=== PATIENT | female | born 1960 | race Caucasian/White ===

== ENCOUNTER 2018-02-16 12:05 | Inpatient (IN) ==
--- NOTE | 2018-02-16 12:36 | Anesthesia Evaluation PreOp ---
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: Other (chronic back pain, sciatica) Other Medical History: Other (obesity BMI=46.7) Anesthesia History: No Prior Anesthetic Complications, Past Anesthesia Alcohol Use: rarely Drug use: none Medications and Allergies ALPRAZolam [Xanax 1 MG Tablet] 1 mg PO QID 02/16/18 [History] Aspirin [Ecotrin] 325 mg PO DAILY 02/16/18 [History] Carbidopa/Levodopa ER 50/200 [Sinemet ER 50-200 TAB] 1 each PO TID 02/16/18 [ History] HYDROmorphone [Dilaudid] 8 mg PO TID 02/16/18 [History] Loratadine [Claritin] 10 mg PO DAILY 02/16/18 [History] Metoprolol [Lopressor] 50 mg PO BID 02/16/18 [History] Oxybutynin Chloride [Ditropan Xl] 5 mg PO BID 02/16/18 [History] Oxycodone HCl [Oxycodone HCl ER] 60 mg PO TID 02/16/18 [History] 3 Allergy/AdvReac Type Severity Reaction Status Date / Time gabapentin [From Neurontin] Allergy legs swell Verified 02/08/18 10:29 pregabalin [From Lyrica] Allergy legs swell Verified 02/08/18 10:29 - Meds/Allergy Pre-op Review Medications Reviewed: Yes Allergies Reviewed: Yes Beta Blockers on Current Med List: Yes If Beta Blockers taken, Date/Time (Last Dose taken): 02/16/2018 at 1100 Anesthesia Results - Labs Laboratory Tests 02/08/18 02/08/18 02/08/18 10:30 10:30 10:30 WBC 8.7 Hgb 13.7 Hct 43.2 Plt Count 232 PT 10.9 INR 1.0 APTT 29.7 Sodium 136 Potassium 4.1 BUN 15 Creatinine 0.82 - Imaging EKG: report reviewed (04/29/2016 SINUS BRADYCARDIA) Anesthesia Exam O2 Sat Height 1.56 m Height 1.56 m Weight 113.852 kg Weight 113.852 kg O2 Sat by Pulse Oximetry 95 Vital Signs Temp Pulse Resp BP Pulse Ox 99.3 F 59 18 144/96 95 02/16/18 12:37 02/16/18 12:37 02/16/18 12:37 02/16/18 12:37 02/16/18 12:37 Height: 5'1.5" Weight: 251 lbs NPO (# of Hours): 8 - HEENT Pupil (Motor): EOMI Mallampati: III Teeth: Normal Oral Opening: Greater than 3 - VOUCHER EXAMINER LOC: Oriented VOUCHER EXAMINER Motor: Normal RUE, Normal LLE, Normal Face, Deficit LUE, Deficit RLE ( slight weakness in back of thigh) VOUCHER EXAMINER Sensory: Normal: RUE, LUE, RLE, LLE, Face - Cardiac Rhythm: Regular Murmur: None - Pulmonary Breath Sounds: bilateral Clear Respiratory Effort: Symmetrical Anesthesia Assess/Plan ASA Score: 3 Modified [place] Scale for Level of Consciousness: Cooperative, oriented, and tranquil Anesthetic Plan: General, Regional (femoral nerve block, Ipack) Monitoring Plan: Standard Monitors Recovery Plan: PACU
[2018-02-16] MEDS ORDERED: CeFAZolin Syr 2,000MG/20 ML 2,000 MG/20 ML SYRINGE IVPB ONE (12:46)
[2018-02-16] MEDS ORDERED: Albuterol 2.5 MG/3 ML NEBULIZER IH ONE (12:46)
--- NOTE | 2018-02-16 12:52 | History & Physical Report ---
Date of Encounter: 02/16/18 Time of Encounter: 12:52 24 Hour HP Update - Instructions Instructions: If the History and Physical is less than 30 days old and was completed prior to A.M. admission and or procedure and has NOT been updated on calendar day of procedure please complete this update prior to performing procedure. - Update Patient reports changes in Medical Condition: No Changes in examination, assessment, or condition: No Changes in Medication: No Preop tests/diagnostics Reviewed: Yes Surgery Remains Indicated: Yes Consent for Planned Operative Procedure(s) Verified: Yes - Pre-Operative Checklist Preoperative Checklist Indicated: No Prophylactic Antibiotic Ordered: Yes Is VTE Prophylaxis Indicated?: Yes
--- NOTE | 2018-02-16 12:58 | Discharge Summary ---
<Pilo Petit - Last Filed: 02/16/18 14:04> Orders not resulted at time of discharge: Pending orders 02/16/18 12:45 XR knee RT limited 1-2V [XR] Routine Hemoglobin and Hematocrit [HEME] Routine Date of Encounter: 02/16/18 - Discharge Diagnosis (1) Morbid obesity with BMI of 45.0-49.9, adult Priority: Secondary Status: Chronic (2) Asthma Priority: Secondary Status: Chronic Qualifiers: Asthma severity: unspecified severity Asthma persistence: unspecified Asthma complication type: uncomplicated Qualified Code(s): J45.909 - Unspecified asthma, uncomplicated (3) Arthritis of right knee Priority: Primary Status: Chronic (4) Status post total right knee replacement Priority: Primary Status: Acute (5) Hypertension Priority: Secondary Status: Chronic Qualifiers: Hypertension type: unspecified Qualified Code(s): I10 - Essential (primary ) hypertension - Hospital Course Hospital course: Ms. Hines is a 57 year old female - Time Spent with Patient Total time spent providing and/or coordinating discharge services: - Discharge Medications Home Medications: ALPRAZolam [Xanax 1 MG Tablet] 1 mg PO QID 02/16/18 [History] Carbidopa/Levodopa ER 50/200 [Sinemet ER 50-200 Tab] 1 each PO TID 02/16/18 [ History] HYDROmorphone [Dilaudid] 8 mg PO TID 02/16/18 [History] Loratadine [Claritin] 10 mg PO DAILY 02/16/18 [History] OxyCODONE Immed Rel [Roxicodone 30 MG] 1 - 2 tab PO Q4-6H PRN 02/16/18 [History] Oxybutynin Chloride [Ditropan Xl] 5 mg PO BID 02/16/18 [History] Aspirin 325 mg PO DAILY 02/17/18 [History] BuPROPion SR (12 HR) [Wellbutrin SR] 150 mg PO BID 02/17/18 [History] Metoprolol [Lopressor] 100 mg PO BID 02/17/18 [History] Allergies/Adverse Reactions: 3 Allergy/AdvReac Type Severity Reaction Status Date / Time gabapentin [From Neurontin] Allergy legs swell Verified 02/08/18 10:29 pregabalin [From Lyrica] Allergy legs swell Verified 02/08/18 10:29 Primary care physician: Alva Cifuentes MD - Patient Status Disposition: Home Health Service Condition: Good - Discharge Instructions Follow Up With: Alva Cifuentes MD [Primary Care Provider] - Additional Instructions: Opsite dressing, leave intact until first post-operative visit. Pressure dressing applied over the opsite should be left in place for 24-48 hrs. If dressing becomes >50% saturated, contact office, remove dressing and place appropriate dressing in its place. Do not allow for dressing to get wet. Zipline/Edi in place, plan to remove at post-operative day #14-16. Total Joint Precautions x 6 weeks Apply cold therapy wrap 3-6x/day for 20 minutes at a time. Encourage ambulation throughout the day Use Incentive spirometer 10x/hour. Elevate affected extremity above heart as tolerated. Brace: Wear knee immobilizer at night x 2 weeks <Anita Oliva - Last Filed: 02/17/18 16:53> Orders not resulted at time of discharge: Pending orders 02/16/18 13:35 US anesthesia pain block [US] Routine 02/16/18 15:43 Surgical Pathology [PTH] Routine 02/18/18 04:00 Basic Metabolic Panel AM 0400 Hemoglobin and Hematocrit [HEME] AM 0400 Date of Encounter: 02/17/18 Time of Encounter: 12:40 - Discharge Diagnosis (1) Status post total right knee replacement Priority: Primary Status: Acute (2) Arthritis of right knee Priority: Primary Status: Chronic (3) Asthma Priority: Secondary Status: Chronic Qualifiers: Asthma severity: unspecified severity Asthma persistence: unspecified Asthma complication type: uncomplicated Qualified Code(s): J45.909 - Unspecified asthma, uncomplicated (4) Hypertension Priority: Secondary Status: Chronic Qualifiers: Hypertension type: essential hypertension Qualified Code(s): I10 - Essential (primary) hypertension (5) Morbid obesity with BMI of 45.0-49.9, adult Priority: Secondary Status: Chronic (6) Parkinson disease Priority: Secondary Status: Chronic - Hospital Course Hospital course: Ms. Hines is a 57 year old female status post Right TKR 02/16/18with a history of Parkinson's disease, HTN, asthma, obesity . Patient had saturated through dressings twice since surgery, worse after first therapy session this morning. 3 edi were added to proximal end where small gap was noted and pressure dressing applied. Bleeding minimal after therapy this afternoon. Continue with pressure dressing for 24-48 hrs. Daughter is comfortable with dressings changes if necessary. Stable for discharge. Patient seen sitting up in chair eating lunch, without complaints. A&O x 3 Afebrile, vital signs stable. Labs reviewed. H/H 11.5/35.5- stable, asymptomatic Pain control: adequate. She does receive chronic pain medication from another provider (oxycodone 30mg) will not provide any additional pain medication. Participating in PT. All questions and concerns addressed. Educated on use of incentive spirometer. Encouraged ambulation and proper hydration. Patient educated on post-operative restrictions and post-operative care. Assessment and plan: Continue with postoperative care Discharge plan: Home , discharge today. Patient has Parkinson's disease and baseline is unable to ambulate on own. Family is in room and live with patient, state she is back to her baseline and they have everything they need to care for her at home. Therapist did recommend ECF but patient and family want to go home. This was discussed with Dr. Petit who is ok with her being discharged to home today. Will set up for home therapy. - Time Spent with Patient Total time spent providing and/or coordinating discharge services: Date of admission: 02/16/18 17:33 Primary care physician: Alva Cifuentes MD Consults: 02/16/18 17:49 Consult to Occupational Therapy [CONS] Routine Comment: Evaluate, develop and implement POC Reason for Consult: post knee surgery Does patient have active BEDREST order?: No Is patient medically & hemodynamically stable?: Yes Consult to Orthopedic Navigator [CONS] [CONS] Routine Consult to Physical Therapy [CONS] Routine Comment: Evaluate, develop and impliment POC Reason for Consult: post knee surgery Does patient have active BEDREST order?: No Is patient medically & hemodynamically stable?: Yes Consult to Playground Worker [CONS] Routine Reason for SW Consult: post op joint replacement RT Post Op Consult [CONS] Routine 02/16/18 18:05 Consult to Pastoral Services [CONS] Routine Comment: admission consult - pt request Discharging clinician: Pilo Petit Anticipated date of discharge: 02/17/18 Labs on day of discharge: Labs from last 24 hours 02/17/18 02/17/18 02/16/18 00:43 00:43 17:12 Hgb 11.5 D 13.3 Hct 35.5 40.5 Sodium 136 Potassium 3.8 Chloride 101 Carbon Dioxide 21 L BUN 12 Creatinine 0.81 Est GFR ( Amer) > 60 Est GFR (Non-Af Amer) > 60 BUN/Creatinine Ratio 15 Glucose 213 H Calculated Osmolality 288 Calcium 8.6 - Impressions ITS Impressions Knee X-Ray 02/16/18 12:45 IMPRESSION: 1. Status post total right knee arthroplasty. 2. No hardware failure or fracture. 3. No unexpected retained radiopaque foreign body. 4. Correlate with procedural report. D/ / Fletcher Kirk / Fletcher Kirk Interpreting Provider: Fletcher Kirk - Patient Status Functional capacity at discharge: bed bound Overall status at discharge: patient is back to baseline - Diet and Activity Activity: as per physical therapy Diet: advance to your usual diet
[2018-02-16] MEDS ORDERED: Ringers Solution, Lactated 1,000 ML IVC SCH (13:00)
[2018-02-16] MEDS ORDERED: Bupivacaine/Clonidine Syringe 1 EACH SYRINGE ONE (13:30)
[2018-02-16] MEDS ORDERED: ROPIVACAINE HCL/PF 0.5% 30 ML VIAL ONE (13:30)
[2018-02-16] MEDS ORDERED: *HR* FentaNYL (PF) 250 MCG/5 ML VIAL ONE (13:38)
[2018-02-16] MEDS ORDERED: *HR* Midazolam HCl 2 MG/2 ML VIAL ONE (13:38)
[2018-02-16] MEDS ORDERED: Lidocaine -MPF 1% 5 ML AMPUL ONE (13:39)
[2018-02-16] MEDS ORDERED: Ethanol\\Acetic Acid\\Na Ace\\Ben 1,000 ML IRRIG.SOLN IR ONE (14:14)
--- NOTE | 2018-02-16 14:16 | Anesthesia Procedures ---
Date of Encounter: 02/16/18 Time of Encounter: 14:00 Procedures: Anesthesia - Nerve Block Procedure Date: 02/16/18 Time: 14:00 Allergies/Adv Reactions: Allergies gabapentin [From Neurontin] Allergy (Verified 02/08/18 10:29) legs swell pregabalin [From Lyrica] Allergy (Verified 02/08/18 10:29) legs swell Pre-op Diagnosis: right knee arthritis Surgical Procedure: right total knee Checklist: Correct Patient Identifier, Correct procedure, History checked Correct side: Right Blood Thinner: No Monitor Applied: EKG, BP, Pulse Oximetry Supplemental Oxygen via Nasal Cannula (L/min): 2 Sedation: Versed (mg): 2 Sedation: Fentanyl (mcg): 150 Indication: Post Op Analgesia Pre-op Neuro Deficits: No Block Type: Femoral, Other (ipack) Catheter placed: No Sterile Technique: Yes Ultrasound used: Yes Anatomy identified: Yes Visual spread of Local: Yes Nerve Stimulator Range: >0.4 - 0.6 mA Blood on Needle Aspiration: No Smooth Injection of Local: Yes Pain with Injection of Local: No Prep: Chlorhexadine Needle: 22 x 50 mm Stimuplex, 21 x 100 mm Stimuplex Local: 0.25% Bupivicaine w/Clonidine 20 mcg/cc, Ropivacaine (decadron) Volume (cc): 50 Number of Attempts: 2 Complications: None/effective block Vitals: see nurses notes for vitals
[2018-02-16] MEDS ORDERED: *HR* Propofol 200 MG/20 ML VIAL IVP ONE (14:28)
[2018-02-16] MEDS ORDERED: Lidocaine -MPF 2% 2 ML VIAL ONE (15:16)
[2018-02-16] MEDS ORDERED: Dexamethasone 4 MG/ML VIAL ONE (15:16)
[2018-02-16] MEDS ORDERED: Ondansetron 4 MG/2 ML VIAL ONE (15:16)
--- NOTE | 2018-02-16 15:55 | Orthopedic Operative Note ---
Date of procedure: 02/16/18 Pre-op diagnosis: Knee arthritis right Post-op diagnosis: same Procedure: Procedure: Right robotic-assisted Total knee replacement Estimated blood loss: 400 cc Hardware: Metal and polyethylene replacement. [place] Femur: 4 Tibia: 4 TS insert: 9 Patella: 36 Exam Under anesthesia: 25 degree flexion contracture 13 degree varus as calculated by the robot 90 degree flexion and no instability Procedural Notes: Grade 4 arthritic changes all 3 compartments. Operative procedure: The patient was brought to the operating room and placed on the operating room table. After general anesthesia was administered the operative knee was examined. Findings were noted in the exam under anesthesia. The operative extremity was prepped and draped in sterile surgical fashion. The patient received IV antibiotics prior to skin incision. A standard midline incision was made centered over the patella. The incision was made through the skin and subcutaneous tissue. A medial parapatellar tendon approach was performed. Care was taken to preserve tissue along the medial aspect of the patella. And to protect the patella tendon. The deep MCL was released off the medial tibia. The infra patella fat pad was excised. The patella was everted and cut was made at the level of the insertion of the quadriceps and patella tendon. The patella was sized to a 36 the guide was seated and the lug holes are drilled. Knee was brought into flexion. Patient noted to have grade 4 arthritic changes all 3 compartments. Steinmann pins were placed in the tibia and the femur for the tibial and femoral arrays respectively. Checkpoints were also placed in the tibia and the femur for calculation purposes. The knee including the femur and the tibial registered. Osteophytes, ACL and PCL were excised at this point. Extension and flexion were assessed with a valgus stress components were adjusted on the computer to balance the knee. Femoral cuts were made first with robotic assistance, these included the anterior cut posterior cuts chamfer cuts. Tibial cut was then performed with robotic assistance as well. Bone fragments were removed, as well as the medial and lateral meniscus. The size 4 femoral guide was seated box cut was made lug holes are drilled. The size 4 tibial tray was seated and prepared with the fin cutter. Trial reduction with the 9 PS Nickie revealed extension of 5degree and 8 degree varus full flexion. No varus valgus instability. Trial reduction revealed excellent patella tracking. All trial components were removed all bony surfaces were irrigated. The Tibia was seated followed by the femur, The Nickie size 9 was seated and secured patella. Patient had similar findings for motion and stability. The knee was then irrigated out with 2 L of pulse irrigation. The extensor mechanism was closed with #2 FiberWire suture and #2 PDS suture. The subcutaneous tissue was then irrigated and closed deep with #1 PDS suture superficially with 0 PDS suture and skin was closed with zip tie The patient was then placed in a sterile dressing and a postoperative brace extubated and transferred to recovery room in stable condition. Anesthesia: GETA Surgeon: Pilo Petit Was there an administrative services assistant present: No Estimated blood loss (cc): 400 Condition: stable Disposition: PACU
[2018-02-16] MEDS: *HR* HYDROmorphone (PF) 1 MG/ML SYRINGE IVP PRN ×6 (16:37→17:08)
--- NOTE | 2018-02-16 17:23 | Anesthesia Evaluation Post Op ---
Date of Encounter: 02/16/18 Time of Encounter: 17:22 - Vital Signs Vital Signs: Vital Signs/O2 Sat, Most Current Temp Pulse Resp BP Pulse Ox 98.2 F 60 14 123/61 97 02/16/18 17:08 02/16/18 17:18 02/16/18 17:18 02/16/18 17:18 02/16/18 17:18 - Lungs Lungs: Clear Ascult./Percussion - Airway Airway: Non-obstructed - Cardiovascular Regular Rate - Mental Status Mental Status: Asleep with brisk response to light stimulation - Pain Pain Scale: 7 Pain Scale used: Numeric (1 - 10) - Nausea Vomiting Nausea Vomiting: Not Present - Hydration Hydration: NPO, Has not voided - Discharge PostOp Status: Transfer Patient to floor
[2018-02-16 17:32] LABS: Hematocrit 40.5 % (35.3-44.9); Hemoglobin 13.3 g/dL (11.5-15.4)
[2018-02-16] MEDS ORDERED: Sennosides 8.6 MG TABLET PO PRN (17:49)
[2018-02-16] MEDS ORDERED: MOM Conc 10 ML UD.LIQ PO PRN (17:49)
[2018-02-16] MEDS ORDERED: Ondansetron 4 MG/2 ML VIAL IVP PRN (17:49)
[2018-02-16] MEDS ORDERED: Naloxone 0.4 MG/ML INJ IVP PRN (17:49)
[2018-02-16] MEDS ORDERED: Temazepam 15 MG CAPSULE PO PRN (17:49)
[2018-02-16] MEDS ORDERED: *HR* Enoxaparin 30 MG/0.3 ML SYRINGE SQ SCH (18:00)
[2018-02-16] MEDS: ALPRAZolam 1 MG TABLET PO SCH ×2 (20:39→21:26)
[2018-02-16] MEDS: Carbidopa/Levodopa ER 50/200 TABLET PO SCH (20:39)
[2018-02-16] MEDS: *HR* HYDROmorphone 4 MG TABLET PO SCH (20:39)
[2018-02-16] MEDS: *HR* Enoxaparin 30 MG/0.3 ML SYRINGE SQ SCH (20:43)
[2018-02-16] MEDS: Ringers Solution, Lactated 1,000 ML IVC SCH (21:52)
[2018-02-17] MEDS: *HR* OxyCODONE Immed Rel 15 MG TABLET PO PRN ×3 (00:10→13:49)
[2018-02-17 01:42] LABS: Hematocrit 35.5 % (35.3-44.9)
[2018-02-17 01:45] LABS: Hemoglobin 11.5 g/dL (11.5-15.4)
[2018-02-17 01:58] LABS: BUN/Creatinine Ratio 15 (6-26); Blood Urea Nitrogen 12 mg/dL (6-20); Calcium 8.6 mg/dL (8.6-10.3); Carbon Dioxide 21 mEq/L (23-29); Chloride 101 mEq/L (98-107); Glucose 213 mg/dL (70-105); Osmolality,Calculated 288 (280-300); Potassium 3.8 mEq/L (3.5-5.1); Sodium 136 mEq/L (136-145); eGFR For Non-African Americans > 60 (> 60)
[2018-02-17] MEDS: *HR* Enoxaparin 30 MG/0.3 ML SYRINGE SQ SCH (04:55)
--- NOTE | 2018-02-17 06:55 | Orthopedics Progress Note ---
Date of Encounter: 02/17/18 Time of Encounter: 06:54 - Assessment and Plan (1) Morbid obesity with BMI of 45.0-49.9, adult Current Visit: Yes Status: Chronic (2) Asthma Current Visit: Yes Status: Chronic Qualifiers: Asthma severity: unspecified severity Asthma persistence: unspecified Asthma complication type: uncomplicated Qualified Code(s): J45.909 - Unspecified asthma, uncomplicated (3) Arthritis of right knee Current Visit: Yes Status: Chronic (4) Status post total right knee replacement Current Visit: Yes Status: Acute (5) Hypertension Current Visit: Yes Status: Chronic Qualifiers: Hypertension type: essential hypertension Qualified Code(s): I10 - Essential (primary) hypertension Subjective Interval history: Patient was seen this morning doing well without complaints. Afebrile vital signs stable. Operative extremity: Neurovascularly intact Dressing clean dry and intact Calves nontender Assessment and plan: Continue with postoperative care Plan for discharge today Objective Vital signs: Vital Signs Temp Pulse Resp BP Pulse Ox 02/17/18 06:51 97.6 F 61 16 111/63 97 02/17/18 03:51 97.9 F 62 14 130/72 99 02/17/18 00:30 98.1 F 63 12 104/69 97 02/17/18 00:09 69 15 117/74 02/16/18 22:30 98 02/16/18 22:19 100/78 02/16/18 20:40 98.0 F 69 13 124/87 98 02/16/18 19:40 98.2 F 69 12 121/85 97 02/16/18 18:46 61 12 126/85 98 02/16/18 18:41 98.6 F 63 12 141/87 63 02/16/18 18:16 97 02/16/18 18:00 61 12 126/85 98 02/16/18 17:52 98.6 F 61 16 111/76 97 02/16/18 17:35 98.2 F 59 14 117/72 97 02/16/18 17:28 61 16 119/70 97 02/16/18 17:18 60 14 123/61 97 02/16/18 17:08 98.2 F 64 16 136/74 96 02/16/18 16:58 61 18 140/96 96 02/16/18 16:48 60 16 134/73 93 02/16/18 16:38 98.6 F 61 16 160/84 100 02/16/18 16:28 58 16 153/78 100 02/16/18 16:18 58 16 138/75 98 02/16/18 16:08 98.6 F 61 16 144/82 99 02/16/18 14:22 60 18 127/79 99 02/16/18 14:08 60 16 135/70 99 02/16/18 13:54 62 18 137/81 98 02/16/18 13:42 62 18 139/89 98 02/16/18 13:32 99.3 F 59 18 144/96 95 02/16/18 12:53 18 95 02/16/18 12:37 99.3 F 59 18 144/96 95 Intake and Output 02/16/18 02/16/18 02/17/18 15:59 23:59 07:59 Intake Total 20 / 20 100 / 100 200 / 200 Output Total 400 / 400 150 / 150 200 / 200 Balance -380 / -380 -50 / -50 0 / 0 Intake: IV Fluids 20 / 20 100 / 100 100 / 100 Ancef Syringe 2,000 MG/20 ML 2, 20 / 20 000 mg In 20 ml @ 200 mls/hr IVPB PREOP ONE Rx#:[id number] Ancef 2,000 MG In 0.9 % Sodium 100 / 100 100 / 100 Chloride 100 ML @ 200 mls/hr IVPB Q8H SHELBIE Rx#:[id number] Oral 100 / 100 Output: Urine 150 / 150 200 / 200 Estimated Blood Loss 400 / 400 Other: Meal jello Percent of Meal Consumed 100% # Voids 1 1 Weight 113.852 kg - Labs CBC & BMP: 02/17/18 00:43 02/17/18 00:43 Labs: Abnormal lab results Carbon Dioxide 21 mEq/L (23-29) L 02/17/18 00:43 Glucose 213 mg/dL (70-105) H 02/17/18 00:43 - VTE Documentation of Mechanical Device: Venous foot pump, device Consult Discharge Plan - Plan Referrals: Alva Cifuentes MD [Primary Care Provider] -
[2018-02-17] MEDS ORDERED: Loratadine 10 MG TABLET PO SCH (09:00)
[2018-02-17] MEDS: Ringers Solution, Lactated 1,000 ML IVC SCH (09:43)
[2018-02-17] MEDS: ALPRAZolam 1 MG TABLET PO SCH ×3 (09:43→16:37)
[2018-02-17] MEDS: Carbidopa/Levodopa ER 50/200 TABLET PO SCH ×2 (09:43→16:37)
[2018-02-17] MEDS: *HR* HYDROmorphone 4 MG TABLET PO SCH ×2 (09:43→16:36)
[2018-02-17 11:20] VITALS: BP 99/68
--- NOTE | 2018-02-17 16:56 | Physician Discharge Referral ---
Home Health/Hosp Referral Info Transfer to: Home Health Attending Provider: Damaso - Diagnosis (1) Status post total right knee replacement Priority: Primary Status: Acute (2) Arthritis of right knee Priority: Secondary Status: Chronic (3) Asthma Priority: Secondary Status: Chronic (4) Hypertension Priority: Secondary Status: Chronic (5) Morbid obesity with BMI of 45.0-49.9, adult Priority: Secondary Status: Chronic (6) Parkinson disease Priority: Secondary Status: Chronic - Respiratory Orders Smoking Cessation: Smoking cessation has been advised. For more information, call the [place] Tobacco Quit Line at 7-383-PYAW-NOW. - Diet/Nutrition Diet/Nutrition Orders: Regular - Activity Activity Orders: Ambulate, Chair - Services Needed Following services are medically necessary services: Physical Therapy, Occupational Therapy Home Care Orders: Opsite dressing, leave intact until first post-operative visit. Pressure dressing to be removed in 24-48 hrs. If dressing becomes >50% saturated, contact office, remove dressing and place appropriate dressing in its place. Do not allow for dressing to get wet. Zipline/Edi in place, plan to remove at post-operative day #14-16. Total Joint Precautions x 6 weeks Apply cold therapy wrap 3-6x/day for 20 minutes at a time. Encourage ambulation throughout the day Use Incentive spirometer 10x/hour. Elevate affected extremity above heart as tolerated. Brace: Wear knee immobilizer at night x 2 weeks - Transfer Medications Home Medications: ALPRAZolam [Xanax 1 MG Tablet] 1 mg PO QID 02/16/18 [History] Carbidopa/Levodopa ER 50/200 [Sinemet ER 50-200 Tab] 1 each PO TID 02/16/18 [ History] HYDROmorphone [Dilaudid] 8 mg PO TID 02/16/18 [History] Loratadine [Claritin] 10 mg PO DAILY 02/16/18 [History] OxyCODONE Immed Rel [Roxicodone 30 MG] 1 - 2 tab PO Q4-6H PRN 02/16/18 [History] Oxybutynin Chloride [Ditropan Xl] 5 mg PO BID 02/16/18 [History] Aspirin 325 mg PO DAILY 02/17/18 [History] BuPROPion SR (12 HR) [Wellbutrin SR] 150 mg PO BID 02/17/18 [History] Metoprolol [Lopressor] 100 mg PO BID 02/17/18 [History] Allergies/Adverse Reactions: 3 Allergy/AdvReac Type Severity Reaction Status Date / Time gabapentin [From Neurontin] Allergy legs swell Verified 02/08/18 10:29 pregabalin [From Lyrica] Allergy legs swell Verified 02/08/18 10:29 Certification: Further, I certify that my clinical findings support that this patient is homebound (i.e. absences from home require considerable and taxing effort and are for medical reasons or protestant services or infrequently or short duration when for other reasons) because: Homebound Reason: Post-surgery restriction and or conditions limit ability to leave home Attestation: My signature below is to certify that this patient is under my care and that I, or nurse practitioner, or a physician education assistant working with me, has a face-to- face encounter with this patient.
== END 2018-02-17 18:34 | disposition home health service (06) | DRG 302 ==
LOC: SAMDAY 12:05 → 3NENU 17:33
PROVIDERS: ADMIT Orthopaedic Surgery; ATTEND Orthopaedic Surgery

== ENCOUNTER 2018-10-23 17:10 | Inpatient (IN) ==
--- NOTE | 2018-10-23 17:32 | Emergency Department Note ---
Disposition Clinical Impression: Community acquired pneumonia Qualifiers: Laterality: right Lung location: middle lobe of lung Qualified Code(s): J18.1 - Lobar pneumonia, unspecified organism Disposition: Admitted As Inpatient Condition: Fair Referrals: Alva Cifuentes MD [Primary Care Provider] - Forms: ED Satisfaction Letter, Work/School Release General Adult HPI - General Chief complaint: ED General Medical Stated complaint: Low O2 Sats Time Seen by Provider: 10/23/18 17:28 Source: patient, family Limitations: no limitations - History of Present Illness HPI Narrative: Patient is a 58-year-old female with a past medical history of obesity, asthma, Parkinson's, arthritis, right total knee arthroplasty, hypertension, anxiety. The patient was sent over from her neurologist office for hypoxia noticed during intake. On arrival to the emergency department patient was mildly hypoxic which was immediately corrected with 2 L nasal cannula. History is obtained from patient and daughter. Apparently patient was not acting abnormally this morning however started acting lethargic this afternoon and hypoxic at the doctor's office. Of note the patient does take 30 mg tablets of Roxicodone 1-2 tabs every 4-6 hours, a milligrams of Dilaudid by mouth 3 times a day, Xanax 1 mg by mouth 4 times a day. Apparently she takes the pain medication for arthritis and Parkinson's and takes the benzodiazepine for anxiety. The daughter states the patient usually takes the Xanax at night and did not have any this morning. She stated that the patient did take her other pain medications as scheduled. Pain Scale: 0 - Related Data Home Medications Medication Instructions Recorded Confirmed ALPRAZolam [Xanax 1 MG Tablet] 1 mg PO QID 02/16/18 02/16/18 Carbidopa/Levodopa ER 50/200 1 each PO TID 02/16/18 02/16/18 [Sinemet ER 50-200 Tab] HYDROmorphone [Dilaudid] 8 mg PO TID 02/16/18 02/16/18 Loratadine [Claritin] 10 mg PO DAILY 02/16/18 02/16/18 OxyCODONE Immed Rel [Roxicodone 30 1 - 2 tab PO Q4-6H PRN 02/16/18 02/16/18 MG] Oxybutynin Chloride [Ditropan Xl] 5 mg PO BID 02/16/18 02/16/18 Aspirin 325 mg PO DAILY 02/17/18 02/17/18 BuPROPion SR (12 HR) [Wellbutrin 150 mg PO BID 02/17/18 02/17/18 SR] Metoprolol [Lopressor] 100 mg PO BID 02/17/18 02/17/18 Allergies Allergy/AdvReac Type Severity Reaction Status Date / Time gabapentin [From Neurontin] Allergy legs swell Verified 10/23/18 17:15 ketorolac [From Toradol] Allergy See Verified 10/23/18 17:15 Comments pregabalin [From Lyrica] Allergy legs swell Verified 10/23/18 17:15 All systems ED: reviewed and negative except as stated. Review of Systems: As Per HPI Past Medical History - Past Medical History Medical history: Reports: arthritis, hypertension, other Psychiatric history: Reports: anxiety - Social History Smoking Status: Never smoker Smokeless Tobacco Status: No Alcohol use: Reports: none Drug use: Reports: none Physical Exam - General Limitations: no limitations General appearance: alert, in no apparent distress - Head Head exam: atraumatic, normocephalic - Eye Eye exam: Present: EOMI, other (Pupils mildly constricted) - ENT ENT exam: normal exam - Neck Neck exam: Present: normal inspection - Chest Chest inspection: Present: normal inspection, symmetric chest wall rise - Respiratory Respiratory exam: Present: normal lung sounds bilaterally. Absent: respiratory distress - Cardiovascular Cardiovascular exam: Present: regular rate, normal rhythm, normal heart sounds - Abdominal Exam Abdominal exam: Present: soft, Non-Tender Course Course Narrative: Patient presented with hypoxia. Differential includes polypharmacy respiratory depression, pneumonia, other etiologies of acute respiratory failure. CBC, BMP, chest x-ray, UDS, urinalysis were ordered. Patient was started on supplemental oxygen and continuous pulse oximetry. - Reevaluation(s) Reevaluation #1: Patient did have oxygen and pulse ox taken off to the bathroom. When those were put back on and she was satting in the mid 80s, and then immediately return to 94 with oxygen on. Time: 18:40 Reevaluation #2: Chest x-ray demonstrating pulmonary vasculature highlighting, cephalization, bibasilar opacification with possible consolidation in right base with blunting of bilateral costophrenic angles, worse on the right. CBC demonstrated a mildly elevated blood cell count. BMP demonstrated a hypotonic likely hypervolemic hyponatremia. We are ordering a CT angiogram to evaluate for pulmonary embolism due to continued hypoxia and starting 20 mg IV Lasix once for diuresis and sta rting fluid restriction for hyponatremia. Time: 19:00 Reevaluation #3: Urinalysis demonstrating significant white blood cells, leukocyte esterase, i ndicating likely UTI. Time: 19:42 Additional Reevaluation(s): CT angiogram negative for pulmonary embolism, positive for right lower lobe pneumonia. This appears to be community acquired pneumonia, gave 1 dose of azithromycin and 1 dose Rocephin to cover for both UTI and pneumonia. Spoke with admitting hospitalist Dr. Castro who accepted admission for hypoxia in setting of pneumonia. Lactic acid is within normal limits. Vital Signs Temperature 98.1 F 10/23/18 17:12 Pulse Rate 63 10/23/18 17:12 Respiratory Rate 16 10/23/18 17:12 Blood Pressure 121/80 10/23/18 17:12 O2 Sat by Pulse Oximetry 90 10/23/18 17:12 Temperature 98.1 F 10/23/18 17:12 Pulse Rate 57 10/23/18 20:27 Respiratory Rate 16 10/23/18 20:27 Blood Pressure 104/78 10/23/18 20:27 O2 Sat by Pulse Oximetry 100 10/23/18 20:27 Oxygen Delivery Oxygen Delivery Nasal Cannula Medical Decision Making - Medical Records Medical records reviewed: Yes I reviewed the patient's medical records. - Lab Data Lab results reviewed: Yes I reviewed the patient's lab results. Result diagrams: 10/23/18 17:58 10/23/18 17:58 Lab Results 10/23/18 10/23/18 10/23/18 Range/Units 17:58 17:58 18:30 WBC 13.5 H (4.3-11.1) K/mcL RBC 4.25 (3.82-4.97) M/mcL Hgb 11.6 (11.5-15.4) g/dL Hct 36.6 (35.3-44.9) % MCV 86.1 (83.0-100.0) fL MCH 27.3 L (28.0-33.3) pg MCHC 31.7 (31.6-35.5) g/dL RDW 14.6 H (11.5-14.5) % Plt Count 187 (140-400) K/mcL MPV 10.3 (9.4-12.4) fL Immature Gran % 0.7 (0-4) % Seg Neutrophils % 79.9 % Lymphocytes % 12.5 % Monocytes % 5.6 % Eosinophils % 1.0 % Basophils % 0.3 % Neutrophils # 10.8 H (1.6-8.9) K/mcL Lymphocytes # 1.7 (0.6-4.6) K/mcL Monocytes # 0.8 (0.0-1.3) K/mcL Eosinophils # 0.1 (0.0-0.6) K/mcL Basophils # 0.0 (0.0-0.2) K/mcL Sodium 125 L (136-145) mEq/L Potassium 4.2 (3.5-5.1) mEq/L Chloride 90 L (98-107) mEq/L Carbon Dioxide 31 H (23-29) mEq/L BUN 17 (6-20) mg/dL Creatinine 1.09 (0.60-1.20) mg/dL Est GFR ( Amer) > 60 (> 60) Est GFR (Non-Af Amer) 52 L (> 60) BUN/Creatinine Ratio 16 (6-26) Glucose 97 (70-105) mg/dL Calculated Osmolality 261 L (280-300) Lactic Acid (0.5-2.2) mmol/L Calcium 8.6 (8.6-10.3) mg/dL Urine Color (Yellow) Urine Clarity (Clear) Urine pH (5.0-8.0) pH Units Ur Specific Wanda (1.010-1.025) Urine Protein (Neg-Trace) mg/dL Urine Glucose (UA) (Normal) mg/dL Urine Ketones (Negative) mg/dL Urine Blood (Negative) Urine Nitrite (Negative) Urine Bilirubin (Negative) Urine Urobilinogen (Normal) mg/dL Ur Leukocyte Esterase (Negative) Urine Microscopic RBC (0-3) per hpf Urine Microscopic WBC (0-3) per hpf Ur Squamous Epith Cells (None-Few) per lpf Urine Bacteria (None-Few) per hpf Hyaline Casts (None-Few) per lpf Ur Culture Indicated? (NO) Urine Opiates Screen Positive H (Mgcrji=214) ng/mL Ur Barbiturates Screen Negative (Wzcmdb=899) ng/mL Ur Phencyclidine Scrn Negative (Cutoff=25) ng/mL Ur Amphetamines Screen Negative (Qcyatp=6841) ng/mL U Benzodiazepines Scrn Positive H (Mkbini=815) ng/mL Urine Cocaine Screen Negative (Cutoff= 300) ng/mL U Marijuana (THC) Screen Negative (Cutoff = 50) ng/mL Ur Drug Screen Interp See Below 10/23/18 10/23/18 Range/Units 18:30 20:37 WBC (4.3-11.1) K/mcL RBC (3.82-4.97) M/mcL Hgb (11.5-15.4) g/dL Hct (35.3-44.9) % MCV (83.0-100.0) fL MCH (28.0-33.3) pg MCHC (31.6-35.5) g/dL RDW (11.5-14.5) % Plt Count (140-400) K/mcL MPV (9.4-12.4) fL Immature Gran % (0-4) % Seg Neutrophils % % Lymphocytes % % Monocytes % % Eosinophils % % Basophils % % Neutrophils # (1.6-8.9) K/mcL Lymphocytes # (0.6-4.6) K/mcL Monocytes # (0.0-1.3) K/mcL Eosinophils # (0.0-0.6) K/mcL Basophils # (0.0-0.2) K/mcL Sodium (136-145) mEq/L Potassium (3.5-5.1) mEq/L Chloride (98-107) mEq/L Carbon Dioxide (23-29) mEq/L BUN (6-20) mg/dL Creatinine (0.60-1.20) mg/dL Est GFR ( Amer) (> 60) Est GFR (Non-Af Amer) (> 60) BUN/Creatinine Ratio (6-26) Glucose (70-105) mg/dL Calculated Osmolality (280-300) Lactic Acid 1.1 (0.5-2.2) mmol/L Calcium (8.6-10.3) mg/dL Urine Color Yellow (Yellow) Urine Clarity Clear (Clear) Urine pH 5.5 (5.0-8.0) pH Units Ur Specific Wanda 1.011 (1.010-1.025) Urine Protein Negative (Neg-Trace) mg/dL Urine Glucose (UA) Normal (Normal) mg/dL Urine Ketones Negative (Negative) mg/dL Urine Blood Negative (Negative) Urine Nitrite Negative (Negative) Urine Bilirubin Negative (Negative) Urine Urobilinogen Normal (Normal) mg/dL Ur Leukocyte Esterase Large H (Negative) Urine Microscopic RBC 3-5 H (0-3) per hpf Urine Microscopic WBC 15-30 H (0-3) per hpf Ur Squamous Epith Cells Many H (None-Few) per lpf Urine Bacteria None Seen (None-Few) per hpf Hyaline Casts None Seen (None-Few) per lpf Ur Culture Indicated? YES A (NO) Urine Opiates Screen (Zifekq=220) ng/mL Ur Barbiturates Screen (Hgnxfk=221) ng/mL Ur Phencyclidine Scrn (Cutoff=25) ng/mL Ur Amphetamines Screen (Wwatva=6591) ng/mL U Benzodiazepines Scrn (Gsnbam=495) ng/mL Urine Cocaine Screen (Cutoff= 300) ng/mL U Marijuana (THC) Screen (Cutoff = 50) ng/mL Ur Drug Screen Interp - Radiology Data Radiology results reviewed: Yes I reviewed the patient's radiology results. Chest x-ray demonstrated nonspecific infiltrate in bilateral lower lobes. CTA showing no pulmonary embolism but did demonstrate right lower/right middle lobe pneumonia. Attestation Statement - Attestation Attestation: I, Ross De La Torre DO, examined this patient [id number] and my medical decision-making was reviewed withMarvin Madden PGY-1, Resident Physician. I agree with the documented findings, disposition and treatment plan as described except to the extent set forth below. I personally supervised and was present for the christensen/critical portions of the procedures completed by the resident documented below. Please see my progress notes for details.
[2018-10-23 18:07] LABS: Basophils % 0.3 %; Eosinophils # 0.1 K/mcL (0.0-0.6); Hematocrit 36.6 % (35.3-44.9); Hemoglobin 11.6 g/dL (11.5-15.4); Immature Granulocytes % 0.7 % (0-4); Lymphocytes # 1.7 K/mcL (0.6-4.6); Lymphocytes % 12.5 %; Mean Corpuscular HGB Conc 31.7 g/dL (31.6-35.5); Mean Corpuscular Hemoglobin 27.3 pg (28.0-33.3); Mean Corpuscular Volume 86.1 fL (83.0-100.0); Mean Platelet Volume 10.3 fL (9.4-12.4); Monocytes # 0.8 K/mcL (0.0-1.3); Monocytes % 5.6 %; Neutrophils # 10.8 K/mcL (1.6-8.9); Platelet Count 187 K/mcL (140-400); Red Blood Count 4.25 M/mcL (3.82-4.97); Red Cell Distribution Width 14.6 % (11.5-14.5); Segmented Neutrophils % 79.9 %
[2018-10-23 18:27] LABS: BUN/Creatinine Ratio 16 (6-26); Blood Urea Nitrogen 17 mg/dL (6-20); Calcium 8.6 mg/dL (8.6-10.3); Carbon Dioxide 31 mEq/L (23-29); Chloride 90 mEq/L (98-107); Glucose 97 mg/dL (70-105); Osmolality,Calculated 261 (280-300); Potassium 4.2 mEq/L (3.5-5.1); Sodium 125 mEq/L (136-145); eGFR For Non-African Americans 52 (> 60)
[2018-10-23] MEDS ORDERED: Isovue-370 500 ML BOTTLE IVP ONE (18:43)
[2018-10-23] MEDS ORDERED: Ipratropium/Albuterol Neb 3 ML IH ONE (18:43)
[2018-10-23 18:48] LABS: Bilirubin,Urine Negative (Negative); Blood,Urine Negative (Negative); Clarity,Urine Clear (Clear); Color,Urine Yellow (Yellow); Glucose,Urine (UA) Normal (Normal); Ketones,Urine Negative (Negative); Leukocyte Esterase,Urine Large (Negative); Nitrite,Urine Negative (Negative); PH,Urine 5.5 pH Units (5.0-8.0); Protein,Urine Negative (Neg-Trace); Specific Gravity,Urine 1.011 (1.010-1.025); Urobilinogen,Urine Normal (Normal)
[2018-10-23 18:52] LABS: Bacteria,Urine None Seen per hpf (None-Few); Hyaline Casts,Urine None Seen per lpf (None-Few); Squamous Epithelial Cell,Urine Many per lpf (None-Few); WBC,Urine 15-30 per hpf (0-3)
[2018-10-23] MEDS ORDERED: Furosemide 20 MG/2 ML VIAL IVP ONE (18:53)
[2018-10-23 19:13] LABS: Amphetamine Screen,Urine Negative ng/mL (Cutoff=1000); Barbiturate Screen,Urine Negative ng/mL (Cutoff=200); Benzodiazepines Screen,Urine Positive ng/mL (Cutoff=200); Cannabinoid Screen,Urine Negative ng/mL (Cutoff = 50); Cocaine Screen,Urine Negative ng/mL (Cutoff= 300); Opiate Screen,Urine Positive ng/mL (Cutoff=300); Phencyclidine Screen,Urine Negative ng/mL (Cutoff=25)
--- NOTE | 2018-10-23 19:15 | Emergency Department Note ---
Disposition Clinical Impression: Hypoxia Community acquired pneumonia Qualifiers: Laterality: right Lung location: middle lobe of lung Qualified Code(s): J18.1 - Lobar pneumonia, unspecified organism Disposition: Admitted As Inpatient Condition: Fair Referrals: Alva Cifuentes MD [Primary Care Provider] - Forms: ED Satisfaction Letter, Work/School Release Time of Disposition: 21:20 General Adult HPI - General Chief complaint: ED General Medical Stated complaint: Low O2 Sats Time Seen by Provider: 10/23/18 17:28 Source: patient, family Limitations: no limitations - History of Present Illness Pain Scale: 0 - Related Data Home Medications Medication Instructions Recorded Confirmed ALPRAZolam [Xanax 1 MG Tablet] 1 mg PO QID 02/16/18 10/23/18 Carbidopa/Levodopa ER 50/200 1 each PO BID 02/16/18 10/23/18 [Sinemet ER 50-200 Tab] HYDROmorphone [Dilaudid] 8 mg PO TID 02/16/18 10/23/18 OxyCODONE Immed Rel [Roxicodone 30 1 - 2 tab PO Q4-6H PRN 02/16/18 10/23/18 MG] Oxybutynin Chloride [Ditropan Xl] 5 mg PO BID 02/16/18 10/23/18 Aspirin 325 mg PO DAILY 02/17/18 10/23/18 Metoprolol [Lopressor] 100 mg PO BID 02/17/18 10/23/18 Allergies Allergy/AdvReac Type Severity Reaction Status Date / Time gabapentin [From Neurontin] Allergy legs swell Verified 10/23/18 17:15 ketorolac [From Toradol] Allergy See Verified 10/23/18 17:15 Comments pregabalin [From Lyrica] Allergy legs swell Verified 10/23/18 17:15 Past Medical History - Past Medical History Medical history: Reports: arthritis, hypertension, other Psychiatric history: Reports: anxiety - Social History Smoking Status: Never smoker Smokeless Tobacco Status: No Alcohol use: Reports: none Drug use: Reports: none Physical Exam - General Limitations: no limitations General appearance: alert, in no apparent distress Course Vital Signs Temperature 98.1 F 10/23/18 17:12 Pulse Rate 63 10/23/18 17:12 Respiratory Rate 16 10/23/18 17:12 Blood Pressure 121/80 10/23/18 17:12 O2 Sat by Pulse Oximetry 90 10/23/18 17:12 Temperature 98.1 F 10/23/18 17:12 Pulse Rate 60 10/23/18 21:01 Respiratory Rate 14 10/23/18 21:01 Blood Pressure 126/78 10/23/18 21:01 O2 Sat by Pulse Oximetry 100 10/23/18 21:01 Oxygen Delivery Oxygen Delivery Nasal Cannula Medical Decision Making - Lab Data Result diagrams: 10/23/18 17:58 10/23/18 17:58 Lab Results 10/23/18 10/23/18 10/23/18 Range/Units 17:58 17:58 18:30 WBC 13.5 H (4.3-11.1) K/mcL RBC 4.25 (3.82-4.97) M/mcL Hgb 11.6 (11.5-15.4) g/dL Hct 36.6 (35.3-44.9) % MCV 86.1 (83.0-100.0) fL MCH 27.3 L (28.0-33.3) pg MCHC 31.7 (31.6-35.5) g/dL RDW 14.6 H (11.5-14.5) % Plt Count 187 (140-400) K/mcL MPV 10.3 (9.4-12.4) fL Immature Gran % 0.7 (0-4) % Seg Neutrophils % 79.9 % Lymphocytes % 12.5 % Monocytes % 5.6 % Eosinophils % 1.0 % Basophils % 0.3 % Neutrophils # 10.8 H (1.6-8.9) K/mcL Lymphocytes # 1.7 (0.6-4.6) K/mcL Monocytes # 0.8 (0.0-1.3) K/mcL Eosinophils # 0.1 (0.0-0.6) K/mcL Basophils # 0.0 (0.0-0.2) K/mcL Sodium 125 L (136-145) mEq/L Potassium 4.2 (3.5-5.1) mEq/L Chloride 90 L (98-107) mEq/L Carbon Dioxide 31 H (23-29) mEq/L BUN 17 (6-20) mg/dL Creatinine 1.09 (0.60-1.20) mg/dL Est GFR ( Amer) > 60 (> 60) Est GFR (Non-Af Amer) 52 L (> 60) BUN/Creatinine Ratio 16 (6-26) Glucose 97 (70-105) mg/dL Calculated Osmolality 261 L (280-300) Lactic Acid (0.5-2.2) mmol/L Calcium 8.6 (8.6-10.3) mg/dL Urine Color (Yellow) Urine Clarity (Clear) Urine pH (5.0-8.0) pH Units Ur Specific Glouster (1.010-1.025) Urine Protein (Neg-Trace) mg/dL Urine Glucose (UA) (Normal) mg/dL Urine Ketones (Negative) mg/dL Urine Blood (Negative) Urine Nitrite (Negative) Urine Bilirubin (Negative) Urine Urobilinogen (Normal) mg/dL Ur Leukocyte Esterase (Negative) Urine Microscopic RBC (0-3) per hpf Urine Microscopic WBC (0-3) per hpf Ur Squamous Epith Cells (None-Few) per lpf Urine Bacteria (None-Few) per hpf Hyaline Casts (None-Few) per lpf Ur Culture Indicated? (NO) Urine Opiates Screen Positive H (Zvnpbd=783) ng/mL Ur Barbiturates Screen Negative (Rfxets=945) ng/mL Ur Phencyclidine Scrn Negative (Cutoff=25) ng/mL Ur Amphetamines Screen Negative (Nxbcly=5142) ng/mL U Benzodiazepines Scrn Positive H (Bhszwc=510) ng/mL Urine Cocaine Screen Negative (Cutoff= 300) ng/mL U Marijuana (THC) Screen Negative (Cutoff = 50) ng/mL Ur Drug Screen Interp See Below 10/23/18 10/23/18 Range/Units 18:30 20:37 WBC (4.3-11.1) K/mcL RBC (3.82-4.97) M/mcL Hgb (11.5-15.4) g/dL Hct (35.3-44.9) % MCV (83.0-100.0) fL MCH (28.0-33.3) pg MCHC (31.6-35.5) g/dL RDW (11.5-14.5) % Plt Count (140-400) K/mcL MPV (9.4-12.4) fL Immature Gran % (0-4) % Seg Neutrophils % % Lymphocytes % % Monocytes % % Eosinophils % % Basophils % % Neutrophils # (1.6-8.9) K/mcL Lymphocytes # (0.6-4.6) K/mcL Monocytes # (0.0-1.3) K/mcL Eosinophils # (0.0-0.6) K/mcL Basophils # (0.0-0.2) K/mcL Sodium (136-145) mEq/L Potassium (3.5-5.1) mEq/L Chloride (98-107) mEq/L Carbon Dioxide (23-29) mEq/L BUN (6-20) mg/dL Creatinine (0.60-1.20) mg/dL Est GFR ( Amer) (> 60) Est GFR (Non-Af Amer) (> 60) BUN/Creatinine Ratio (6-26) Glucose (70-105) mg/dL Calculated Osmolality (280-300) Lactic Acid 1.1 (0.5-2.2) mmol/L Calcium (8.6-10.3) mg/dL Urine Color Yellow (Yellow) Urine Clarity Clear (Clear) Urine pH 5.5 (5.0-8.0) pH Units Ur Specific Glouster 1.011 (1.010-1.025) Urine Protein Negative (Neg-Trace) mg/dL Urine Glucose (UA) Normal (Normal) mg/dL Urine Ketones Negative (Negative) mg/dL Urine Blood Negative (Negative) Urine Nitrite Negative (Negative) Urine Bilirubin Negative (Negative) Urine Urobilinogen Normal (Normal) mg/dL Ur Leukocyte Esterase Large H (Negative) Urine Microscopic RBC 3-5 H (0-3) per hpf Urine Microscopic WBC 15-30 H (0-3) per hpf Ur Squamous Epith Cells Many H (None-Few) per lpf Urine Bacteria None Seen (None-Few) per hpf Hyaline Casts None Seen (None-Few) per lpf Ur Culture Indicated? YES A (NO) Urine Opiates Screen (Ncxmrl=724) ng/mL Ur Barbiturates Screen (Xidcjf=605) ng/mL Ur Phencyclidine Scrn (Cutoff=25) ng/mL Ur Amphetamines Screen (Wjojet=9887) ng/mL U Benzodiazepines Scrn (Fcwpob=793) ng/mL Urine Cocaine Screen (Cutoff= 300) ng/mL U Marijuana (THC) Screen (Cutoff = 50) ng/mL Ur Drug Screen Interp Attestation Statement - Attestation Attestation: I, Ross De La Torre DO, examined this patient [id number] and my medical decision-making was reviewed with Marvin Madden PGY-1, Resident Physician. I agree with the documented findings, disposition and treatment plan as described except to the extent set forth below. I personally supervised and was present for the christensen/critical portions of the procedures completed by the resident documented below. Please see my progress notes for details. 58-year-old female presents emergency room with complaint of shortness of breath. Patient is hypoxic in the 80s at her primary care provider's office. Patient denies any falls trauma or injury. Patient is otherwise alert and oriented. She speaks in full sentences but does have conversational dyspnea. Patient denies any headache or vision change. No nausea vomiting or diarrhea. No fevers or chills. Patient denies any prolonged immobilization or long travel. She does not have any specific history of DVTs or pulmonary emboli. Patient is otherwise speaking in full sentences. Head is atraumatic. Pupils are equal round reactive. Extraocular muscles are intact. Oropharynx is patent. Trachea is midline. Lungs are clear. Heart is regular. Abdomen is soft. She has diminished breath sounds bilaterally. She is using accessory muscles on evaluation. She is on 3 L oxygen at the bedside and has no specific history of oxygen dependence in the past. Patient is denying any cough p roductive sputum or recent illness. Discussion will be had about workup including chest x-ray EKG CBC chemistry troponin liver function does not lipase along with detailed workup for pulmonary vascular related issues. EKG along with CT angiography the chest will be ordered secondary the patient's inability to be ruled out for pulmonary emboli or underlying infection with the hypoxia of unknown etiology. Patient has no asymmetry to the lower extremities. She has normal sensation she is not ataxic. She has full range motion of the upper and lower extremities. Vital signs otherwise stable. See detailed documentation of the physical exam, medical intervention, medical decision-making and disposition in the resident physician's note. No critical care applied the patient's treatment course at this time. [address] angiography the confirms pneumonia with no visible signs of p ulmonary emboli. Antibiotic including azithromycin and Rocephin will be ordered. Urinary tract infection is also a consideration. Lactic acid will be added on. Patient does meet sepsis criteria this time but does not show any acute signs of septic shock. Patient is otherwise clinically stable. Admission process to be established once the remainder the workup is completed. 2030 Dr. Castro reviewed the case and no other questions or concerns at this time. Patient is otherwise stable. Lactic acid is still pending but otherwise it does not record changer the patient outside of fluid resuscitation. She has been hemodynamically stable while here acting appropriately. Patient is still requiring oxygen. Patient will be monitored here in the emergency department until admission process is completed.
[2018-10-23] MEDS ORDERED: cefTRIAXone 1,000 MG in 0.9 % Sodium Chloride Mini Bag 100 ML IVPB ONE (19:51)
[2018-10-23] MEDS ORDERED: Azithromycin 500 MG in D5% in Water 250 ML IVPB ONE (19:51)
[2018-10-24] MEDS ORDERED: Acetaminophen 325 MG TABLET PO PRN (05:09)
[2018-10-24] MEDS ORDERED: Ondansetron 4 MG/2 ML VIAL IVP PRN (05:09)
[2018-10-24] MEDS ORDERED: Ipratropium/Albuterol Neb 3 ML IH PRN (05:09)
[2018-10-24] MEDS ORDERED: Albuterol 2.5 MG/3 ML NEBULIZER IH PRN (05:09)
[2018-10-24] MEDS ORDERED: Naloxone 0.4 MG/ML INJ IVP PRN (05:09)
[2018-10-24] MEDS ORDERED: ALPRAZolam 1 MG TABLET PO PRN (05:18)
[2018-10-24] MEDS ORDERED: *HR* HYDROmorphone 4 MG TABLET PO PRN (05:18)
--- NOTE | 2018-10-24 05:33 | Internal Med History&Physical ---
Date of Encounter: 10/24/18 Time of Encounter: 03:45 Internal Medicine - H&P: HPI Chief complaint: AMS; low oxygen Admitted From: Emergency Dept Plans for Post Hospital Care: Home History of present illness: Ms. Hines is a 58 year old female who presents to the ER tonight from her neurologist's office. According to her and her neurologist, patient was confused, disoriented, and was hallucinating at times. Symptoms started a couple days ago. She suffers from Parkinson's disease and her was inquiring with her neurologist about starting some anti-psychotic medications for her symptoms. This was an abrupt change in her status, and so she was sent to the ER for evaluation. Of note, she did have hypoxemia noted at her neurologist's office with oxygen saturations in the low 80s. Workup in ER re vealed patient to have right lower lobe pneumonia. CT pulmonary angiogram was done, which was negative for PE. She had blood cultures drawn also and was started on antibiotics. She was subsequently admitted to hospitalist service. Upon my assessment of the patient, patient is sleeping but easily arousable. She denies any chest pain, cough, fever, nausea, or vomiting. She has had some mild shortness of breath. Her confirms that she has been confused and disoriented the last few days. She has not had any ill contacts. However, her was hospitalized a few months ago with pneumonia. After I saw patient, I reviewed her labs and note that she was hyponatremic. I asked about any diuretic therapy or excessive water ingestion. She denied either. Given her altered mental status, I am ordering urine lytes and head CT. Past Med Surg Social Fam HX - Past Medical History Attestation: Yes The following information was validated with the patient. Source: patient, old records reviewed, obtained from family Medical history: arthritis, hypertension, other Additional medical history: herinated disc L4. frequent UTI's. bladder l eakage. 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 right knee arthritis. Parkinson's disease Psychiatric history: anxiety - Past Surgical History Surgical History: knee replacement Additional surgical history: carpal tunnel release right wrist. back fusion 2013. left knee replacement 2014 - Social History Smoking Status: Never smoker Smokeless Tobacco Status: No Alcohol use: none Drug use: none Current living situation: Home, With Family Activity Level: Independent ambulation - Family History Mother Living Status: Hx Family Respiratory Disorders: No Father Living Status: Hx Family Respiratory Disorders: No Internal Medicine - H&P: Meds ALPRAZolam [Xanax 1 MG Tablet] 1 mg PO QID 02/16/18 [History] Carbidopa/Levodopa ER 50/200 [Sinemet ER 50-200 Tab] 1 each PO BID 02/16/18 [History] HYDROmorphone [Dilaudid] 8 mg PO TID 02/16/18 [History] OxyCODONE Immed Rel [Roxicodone 30 MG] 1 - 2 tab PO Q4-6H PRN 02/16/18 [History] Oxybutynin Chloride [Ditropan Xl] 5 mg PO BID 02/16/18 [History] Aspirin 325 mg PO DAILY 02/17/18 [History] Metoprolol [Lopressor] 100 mg PO BID 02/17/18 [History] Allergy/AdvReac Type Severity Reaction Status Date / Time gabapentin [From Neurontin] Allergy legs swell Verified 10/23/18 17:15 ketorolac [From Toradol] Allergy See Verified 10/23/18 17:15 Comments pregabalin [From Lyrica] Allergy legs swell Verified 10/23/18 17:15 - Constitutional Constitutional: fatigue, no chills, no fever(s), no night sweats - EENT Eyes: no blurry vision, no change in vision Ears: no ear pain, no tinnitus Nose, mouth and throat: no nasal congestion, no sinus pressure, no sore throat - Cardiovascular Cardiovascular ROS IM: dyspnea, dyspnea on exertion, no chest pain, no orthopnea, no paroxysmal nocturnal dyspnea - Respiratory Respiratory: dyspnea, no cough, no hemoptysis, no chest congestion, no excessive phlegm production, no change in phlegm color, no pain with cough - Gastrointestinal Gastrointestinal: nausea, no abdominal pain, no diarrhea, no hematemesis, no hematochezia, no melena, no vomiting - Genitourinary Genitourinary: dysuria, no flank pain, no hematuria - Musculoskeletal Musculoskeletal ROS IM: no arthralgias, no back pain - Integumentary Integumentary IM: no rash, no jaundice - Neurological Neurological ROS: behavioral changes, confusion, no disequilibrium, no dizziness, no focal weakness, no frequent falls, no headache(s) - Psychiatric Psychiatric: no anxiety, no depression - Endocrine Endocrine IM: no polydipsia, no polyuria - Allergic/Immunologic Allergic/Immunologic: no GI upset with certain foods - Constitutional Vitals: Temp Pulse Resp BP Pulse Ox 97.9 F 52 16 108/70 99 10/24/18 04:10 10/24/18 04:10 10/24/18 04:10 10/24/18 04:10 10/24/18 04:10 General appearance: Present: cooperative, A&O X 3, pleasant, no acute distress, answers questions appropriately Exam: no confusion at this time - Head Head exam: Present: atraumatic, normal inspection - Eye Eye exam: Present: EOMI, PERRL. Absent: scleral icterus Pupils: Present: normal accommodation - ENT ENT exam: Present: mucous membranes dry, normal exam, normal oropharynx - Neck Neck exam general surgery: Present: full ROM, supple, trachea midline. Absent: lymphadenopathy, tenderness, nuchal rigidity, thyromegaly - Respiratory Respiratory exam: Present: rales (right base). Absent: chest wall tenderness, respiratory distress, rhonchi, wheezes, tachypnea - Cardiovascular Cardiovascular exam: Present: distant heart sounds, RRR, +S1, +S2. Absent: diastolic murmur, systolic murmur - GI/Abdominal GI/Abdominal exam: Present: normal bowel sounds, soft. Absent: guarding, hepatomegaly, mass, rebound, splenomegaly, tenderness - Extremities Exam Extremities exam: Present: full ROM, normal capillary refill, warm, radial pulses palpable and symmetrical. Absent: calf tenderness, joint swelling, pedal edema, tenderness - Back Exam Back exam: Absent: CVA tenderness (L), CVA tenderness (R) - Neurological Exam Neurological exam: Present: alert, CN II-XII intact, oriented X3, no focal deficits - Psychiatric Psychiatric exam: Present: flat affect. Absent: homicidal ideation, suicidal ideation - Skin Skin exam: Present: dry, intact, warm Internal Med - H&P Results - Labs CBC & Chem 7: 10/23/18 17:58 10/23/18 17:58 Labs: Short CBC 10/23/18 Range/Units 17:58 WBC 13.5 H (4.3-11.1) K/mcL Hgb 11.6 (11.5-15.4) g/dL Hct 36.6 (35.3-44.9) % Plt Count 187 (140-400) K/mcL Neutrophils # 10.8 H (1.6-8.9) K/mcL BMP 10/23/18 17:58 Sodium 125 L Potassium 4.2 Chloride 90 L Carbon Dioxide 31 H BUN 17 Creatinine 1.09 Glucose 97 Calcium 8.6 Urine 10/23/18 Range/Units 18:30 Urine Color Yellow (Yellow) Urine Clarity Clear (Clear) Urine pH 5.5 (5.0-8.0) pH Units Ur Specific [place] 1.011 (1.010-1.025) Urine Protein Negative (Neg-Trace) mg/dL Urine Glucose (UA) Normal (Normal) mg/dL - Impressions ITS Impressions Chest X-Ray 10/23/18 17:48 IMPRESSION: Increased lung markings bilaterally, likely related to bronchitis, early pneumonia or mild pulmonary vascular congestion. Low lung volumes. D/ / Yuriy Borjas MD / Yuriy Borjas MD Interpreting Provider: Yuriy Borjas MD Chest CTA 10/23/18 18:43 IMPRESSION: Pneumonia, most pronounced in the right middle lobe, to lesser degree in the lingula and left lower lobe and minimally in the right lower lobe. No acute pulmonary emboli. 3 cm low-density gallstone in the gallbladder. D/ / Yuriy Borjas MD / Yuriy Borjas MD Interpreting Provider: Yuriy Borjas MD - Diagnostic Studies Chest x-ray Status: image reviewed by me (bilateral vascular congestion; compared to CT chest -- concern for pneumonia) - Assessment and Plan (1) Acute encephalopathy Current Visit: Yes Status: Acute Assessment and plan: 1. Likely due to UTI and pneumonia. 2. Will order STAT head CT as this was not done in ER. 3. Monitor closely. 4. Patient is on high dose opiates and BZD at home; considering decreasing doses and/or frequency. (2) UTI (urinary tract infection) Current Visit: Yes Status: Acute Assessment and plan: 1. Urine cultured in ER. 2. Continue antibiotics. 3. Follow cultures and clinical course. Qualifiers: Urinary tract infection type: acute cystitis Hematuria presence: without hematuria Qualified Code(s): N30.00 - Acute cystitis without hematuria (3) Hyponatremia Current Visit: Yes Status: Acute Assessment and plan: 1. Will order urine lytes and STAT head CT. 2. Monitor I/O and chemistries. 3. Hyponatremia can be secondary to pneumonia. (4) Community acquired pneumonia Current Visit: Yes Status: Acute Assessment and plan: 1. Blood, sputum cultures ordered. 2. Continue Rocephin and Zithromax. 3. Oxygen and aerosols PRN. Qualifiers: Laterality: right Lung location: middle lobe of lung Qualified Code(s): J18.1 - Lobar pneumonia, unspecified organism (5) Parkinson disease Current Visit: Yes Status: Chronic Assessment and plan: 1. Continue home meds as appropriate. (6) DVT prophylaxis Current Visit: Yes Status: Acute Assessment and plan: 1. Heparin SQ.
[2018-10-24] MEDS: *HR* Heparin 5,000 UNIT/ML VIAL SQ SCH ×3 (06:18→21:15)
[2018-10-24 06:47] LABS: Hematocrit 38.3 % (35.3-44.9); Hemoglobin 12.3 g/dL (11.5-15.4); Mean Corpuscular HGB Conc 32.1 g/dL (31.6-35.5); Mean Corpuscular Hemoglobin 27.5 pg (28.0-33.3); Mean Corpuscular Volume 85.5 fL (83.0-100.0); Mean Platelet Volume 10.8 fL (9.4-12.4); Platelet Count 166 K/mcL (140-400); Red Blood Count 4.48 M/mcL (3.82-4.97); Red Cell Distribution Width 14.6 % (11.5-14.5)
[2018-10-24] MEDS: Metoprolol 100 MG TABLET PO SCH ×2 (10:04→21:13)
[2018-10-24] MEDS: Aspirin 325 MG TABLET PO SCH (10:04)
[2018-10-24] MEDS: Carbidopa/Levodopa ER 50/200 TABLET PO SCH ×2 (10:04→21:13)
[2018-10-24 10:24] LABS: Alanine Aminotransferase < 3 Units/L (7-52); Albumin 3.7 g/dL (3.5-5.7); Albumin/Globulin Ratio 1.3 (1.1-2.2); Alkaline Phosphatase 99 Units/L (34-104); Aspartate Amino Transferase 17 Units/L (13-39); BUN/Creatinine Ratio 17 (6-26); Bilirubin,Total 0.8 mg/dL (0.3-1.0); Blood Urea Nitrogen 13 mg/dL (6-20); Carbon Dioxide 34 mEq/L (23-29); Chloride 92 mEq/L (98-107); Globulin 2.9 g/dL (2.4-3.5); Glucose 95 mg/dL (70-105); Magnesium 1.8 mg/dL (1.6-2.6); Osmolality,Calculated 280 (280-300); Potassium 3.3 mEq/L (3.5-5.1); Sodium 135 mEq/L (136-145); Total Protein 6.6 g/dL (6.4-8.9); eGFR For Non-African Americans > 60 (> 60)
--- NOTE | 2018-10-24 11:08 | Event Note ---
Date of Encounter: 10/24/18 Time of Encounter: 08:59 Patient seen and examined this morning it was up. No acute overnight events. Breathing improved little bit. Denies new complaints. Alert and oriented 3. Family at bedside. Exam General: In no acute distress. Respiratory exam: CTAB. no accessory muscle use, rales, rhonchi, wheezes Cardiovascular exam: RRR, +S1, +S2. no murmur, gallop, rubs. GI/Abdominal exam: Non-tender, Non-distended, normal bowel sounds, soft, no peritoneal signs. Extremities exam: no pedal edema, pulses palpable in b/l lower extremities. no calf tenderness Neurological exam: CN II-XII intact, AO X3, no focal deficits. Mask face. Skin exam: No skin rash Assessment Pneumonia UTI Acute encephalopathy Parkinson's disease Hyponatremia Hypokalemia DVT prophylaxis Plan - CTA with a multifocal pneumonia most pronounced on the right. Continue empiric antibiotics. Follow-up blood urine and sputum culture. Obtain a urine antigen and RIP - Encephalopathy resolved. [address] unremarkable. Possibly related to hypoxia versus metabolic encephalopathy - Hyponatremia improved. Received Lasix no IV fluids. Improved. Awaiting urine studies - Had some dysuria with abnormal UA suggestive of UTI. On antibiotics. Follow- up cultures - Replete potassium - Patient insistent on leaving early. Discussed waiting for cultures till tomorrow at least. May discharge tomorrow depending on clinical status. - We will consider decreasing Xanax and Dilaudid Dose on discharge
[2018-10-24] MEDS ORDERED: *HR* OxyCODONE Immed Rel 15 MG TABLET PO PRN (12:44)
[2018-10-24] MEDS: Ipratropium/Albuterol Neb 3 ML IH SCH ×2 (15:45→22:00)
[2018-10-24] MEDS ORDERED: Azithromycin 500 MG in D5% in Water 250 ML IVPB SCH (21:00)
[2018-10-24] MEDS ORDERED: cefTRIAXone 2,000 MG in Water for inj. (sterile) 20 ML 20 ML IVP SCH (21:00)
[2018-10-25] MEDS: Ipratropium/Albuterol Neb 3 ML IH SCH ×2 (03:12→10:21)
[2018-10-25 06:25] LABS: Basophils % 0.4 %; Eosinophils # 0.1 K/mcL (0.0-0.6); Eosinophils % 1.8 %; Hematocrit 38.3 % (35.3-44.9); Hemoglobin 12.5 g/dL (11.5-15.4); Immature Granulocytes % 0.2 % (0-4); Lymphocytes # 0.8 K/mcL (0.6-4.6); Mean Corpuscular HGB Conc 32.6 g/dL (31.6-35.5); Mean Corpuscular Hemoglobin 27.8 pg (28.0-33.3); Mean Corpuscular Volume 85.1 fL (83.0-100.0); Mean Platelet Volume 10.9 fL (9.4-12.4); Monocytes # 0.4 K/mcL (0.0-1.3); Monocytes % 7.7 %; Neutrophils # 4.1 K/mcL (1.6-8.9); Platelet Count 202 K/mcL (140-400); Red Cell Distribution Width 14.7 % (11.5-14.5); Segmented Neutrophils % 75.9 %
[2018-10-25 06:44] LABS: BUN/Creatinine Ratio 10 (6-26); Blood Urea Nitrogen 6 mg/dL (6-20); Calcium 9.4 mg/dL (8.6-10.3); Carbon Dioxide 30 mEq/L (23-29); Chloride 96 mEq/L (98-107); Glucose 90 mg/dL (70-105); Osmolality,Calculated 281 (280-300); Potassium 3.5 mEq/L (3.5-5.1); Sodium 137 mEq/L (136-145); eGFR For Non-African Americans > 60 (> 60)
[2018-10-25 06:46] VITALS: BP 126/80
[2018-10-25] MEDS: *HR* Heparin 5,000 UNIT/ML VIAL SQ SCH (06:49)
[2018-10-25] MEDS: Metoprolol 100 MG TABLET PO SCH (08:21)
[2018-10-25] MEDS: Carbidopa/Levodopa ER 50/200 TABLET PO SCH (09:02)
[2018-10-25] MEDS: Aspirin 325 MG TABLET PO SCH (09:02)
--- NOTE | 2018-10-25 10:43 | Discharge Summary ---
- NOTES TO OUTPATIENT PROVIDER Notes to Outpatient Provider: 1. Pt is on multiple pain and anxiety medication and admitted as confusion. On discharge, we have discontinued hydromorphone by mouth, decreased the dose of Xanax, keep oxycodone by mouth as needed. Please follow-up with patient and adjusted medication as needed. 2. F/U urine culture result please and adjust abx according to sensitivity. Orders not resulted at time of discharge: Pending orders 10/23/18 18:30 Culture,Urine [RM] Stat 10/23/18 20:21 Culture,Blood [BC] Stat 10/24/18 05:09 Culture,Sputum with Gram Stain [RM] Stat 10/24/18 05:17 Osmolality,Urine [UCHEM] Stat Urine Sodium 24 Hr [UCHEM] Stat 10/24/18 06:00 ECG 12 lead ECG [ECG] AM 0600 10/24/18 11:09 Legionella Antigen [RM] Routine Respiratory Infection Panel [MOLMIC] Stat S. Pneumoniae Antigen [RM] Routine Date of Encounter: 10/25/18 Time of Encounter: 09:00 - Discharge Diagnosis (1) Parkinson disease Priority: Secondary Status: Chronic (2) Community acquired pneumonia Priority: Primary Status: Acute Qualifiers: Laterality: right Lung location: middle lobe of lung Qualified Code(s): J18.1 - Lobar pneumonia, unspecified organism (3) Acute encephalopathy Priority: Secondary Status: Acute (4) UTI (urinary tract infection) Priority: Secondary Status: Acute Qualifiers: Urinary tract infection type: acute cystitis Hematuria presence: without hematuria Qualified Code(s): N30.00 - Acute cystitis without hematuria (5) Hyponatremia Priority: Secondary Status: Acute (6) DVT prophylaxis Priority: Secondary Status: Acute Hospital course: Ms. Hines is a 58 year old female present to ER for hypoxia and confusion. Patient was found right middle lobe pneumonia. Patient also complaining of dysuria. Patient was treated with antibiotics and her pain medication has been adjusted because she is on multiple pain and anxiety medications. After treatment, patient's symptoms has improved. Hypoxia has improved with SPO2 96% in room air and the patient passed the 6 minutes walking test without desaturation. Patient's dysuria has resolved as well. Patient has no fever, no leukocytosis. CURB 65 score 0. We will DC patient home, continue by mouth antibiotics and continue follow-up with PCP as outpatient. Her pain medication has been decreased because of confusion on admission, which was considered polypharmacy. I have seen and examined patient today. Patient is awake alert. Denies cough, fever, shortness of breath, dysuria. Vitals are stable. Lab has been reviewed, unremarkable. Will DC patient home on by mouth Levaquin and Flagyl (considering patient has Parkinson disease, add Flagyl to cover anaerobic/aspiration pneumonia). Will DC patient home and continue closely follow-up with PCP as outpatient. PCP will follow up blood/urine culture results and adjust antibiotic as needed. Discharge discussed with: patient - Time Spent with Patient Total time spent providing and/or coordinating discharge services: 40 minutes Time spent: Greater than 30 minutes - Discharge Medications Prescriptions: New metroNIDAZOLE [Flagyl] 500 mg PO TID 7 Days #21 tablet levoFLOXacin [Levaquin] 750 mg PO DAILY 7 Days #7 tablet Continued Oxybutynin Chloride [Ditropan Xl] 5 mg PO BID OxyCODONE Immed Rel [Roxicodone 30 MG] 1 - 2 tab PO Q4-6H PRN PRN Reason: chronic pain Aspirin 325 mg PO DAILY Gabapentin [Neurontin] 300 mg PO TID Carbidopa/Levodopa ER 50/200 [Sinemet ER 50-200 Tab] 1 tab PO 0800,1200,1600 Metoprolol Tartrate 100 mg PO BID Polyethylene Glycol 3350 17 mg PO DAILY PRN PRN Reason: Constipation Changed ALPRAZolam [Xanax 1 MG Tablet] 0.5 mg PO QID PRN #0 PRN Reason: Anxiety Discontinued Hydromorphone HCl [Dilaudid] 16 mg PO BID Hydromorphone HCl [Dilaudid] 24 mg PO HS Home Medications: OxyCODONE Immed Rel [Roxicodone 30 MG] 1 - 2 tab PO Q4-6H PRN 02/16/18 [History] Oxybutynin Chloride [Ditropan Xl] 5 mg PO BID 02/16/18 [History] Aspirin 325 mg PO DAILY 02/17/18 [History] Carbidopa/Levodopa ER 50/200 [Sinemet ER 50-200 Tab] 1 tab PO 0800,1200,1600 10/24/18 [History] Gabapentin [Neurontin] 300 mg PO TID 10/24/18 [History] ALPRAZolam [Xanax 1 MG Tablet] 0.5 mg PO QID PRN #0 10/25/18 [Rx] Metoprolol Tartrate 100 mg PO BID 10/25/18 [History] Polyethylene Glycol 3350 17 mg PO DAILY PRN 10/25/18 [History] levoFLOXacin [Levaquin] 750 mg PO DAILY 7 Days #7 tablet 10/25/18 [Rx] metroNIDAZOLE [Flagyl] 500 mg PO TID 7 Days #21 tablet 10/25/18 [Rx] Allergies/Adverse Reactions: Allergy/AdvReac Type Severity Reaction Status Date / Time gabapentin [From Neurontin] Allergy legs swell Verified 10/23/18 17:15 ketorolac [From Toradol] Allergy See Verified 10/23/18 17:15 Comments pregabalin [From Lyrica] Allergy legs swell Verified 10/23/18 17:15 Date of admission: 10/24/18 05:09 Primary care physician: Alva Cifuentes MD Discharging clinician: Rickey Barrera Anticipated date of discharge: 10/25/18 - Constitutional Vitals: Temp Pulse Resp BP Pulse Ox 98.2 F 60 15 126/80 94 10/25/18 06:44 10/25/18 06:44 10/25/18 06:44 10/25/18 06:44 10/25/18 06:44 General appearance: Present: cooperative, A&O X 3, pleasant, no acute distress, answers questions appropriately Exam: Pt is AAO x 3, in NAD HEENT: NC/AT, PERRL Neck: Supple, no JVD, no LAD Lungs: CTA b/l Heart: S1S2, RRR Abd: Soft, nontender, BS present Ext: ROM wnl, no pedal edema Neuro: No focal deficit - Patient Status Disposition: Home, Self-Care Condition: Fair Functional capacity at discharge: uses cane/walker Overall status at discharge: patient is back to baseline - Discharge Instructions Follow Up With: Alva Cifuentes MD [Primary Care Provider] - - Diet and Activity Activity: increase activity as tolerated Diet: low fat, low cholesterol
[2018-10-25] MEDS ORDERED: levoFLOXacin 750 MG TABLET PO SCH (10:45)
--- NOTE | 2018-10-25 11:39 | Physician Discharge Referral ---
Home Health/Hosp Referral Info Transfer to: Home Health Provider in Charge Post Discharge: PCP - Diagnosis (1) Parkinson disease Status: Chronic (2) Community acquired pneumonia Status: Acute (3) Acute encephalopathy Status: Acute (4) UTI (urinary tract infection) Status: Acute (5) Hyponatremia Status: Acute (6) DVT prophylaxis Status: Acute - Respiratory Orders Smoking Cessation: Smoking cessation has been advised. For more information, call the [place] [employer] Quit Line at 6-478-JAQD-NOW. - Transfer Medications Prescriptions: metroNIDAZOLE [Flagyl] 500 mg PO TID 7 Days #21 tablet levoFLOXacin [Levaquin] 750 mg PO DAILY 7 Days #7 tablet Home Medications: OxyCODONE Immed Rel [Roxicodone 30 MG] 1 - 2 tab PO Q4-6H PRN 02/16/18 [History] Oxybutynin Chloride [Ditropan Xl] 5 mg PO BID 02/16/18 [History] Aspirin 325 mg PO DAILY 02/17/18 [History] Carbidopa/Levodopa ER 50/200 [Sinemet ER 50-200 Tab] 1 tab PO 0800,1200,1600 10/24/18 [History] Gabapentin [Neurontin] 300 mg PO TID 10/24/18 [History] ALPRAZolam [Xanax 1 MG Tablet] 0.5 mg PO QID PRN #0 10/25/18 [Rx] Metoprolol Tartrate 100 mg PO BID 10/25/18 [History] Polyethylene Glycol 3350 17 mg PO DAILY PRN 10/25/18 [History] levoFLOXacin [Levaquin] 750 mg PO DAILY 7 Days #7 tablet 10/25/18 [Rx] metroNIDAZOLE [Flagyl] 500 mg PO TID 7 Days #21 tablet 10/25/18 [Rx] Allergies/Adverse Reactions: Allergy/AdvReac Type Severity Reaction Status Date / Time gabapentin [From Neurontin] Allergy legs swell Verified 10/23/18 17:15 ketorolac [From Toradol] Allergy See Verified 10/23/18 17:15 Comments pregabalin [From Lyrica] Allergy legs swell Verified 10/23/18 17:15 Certification: Further, I certify that my clinical findings support that this patient is homebound (i.e. absences from home require considerable and taxing effort and are for medical reasons or scientology services or infrequently or short duration when for other reasons) because: Homebound Reason: Patient requires assistance of a person or device to safely leave home Attestation: My signature below is to certify that this patient is under my care and that I, or nurse practitioner, or a physician's cosmetic sales assistant working with me, has a [id number] encounter with this patient.
[2018-10-25] MEDS ORDERED: metroNIDAZOLE 500 MG TABLET PO SCH (15:00)
== END 2018-10-25 11:40 | disposition home or self-care (01) | DRG 139 ==
LOC: 3ANU 17:10 → EMEROOARM 17:10 → 3ANU 23:21 → SUATTDRO 10-24 05:09
PROVIDERS: ADMIT Pediatrics; ATTEND Internal Medicine

== ENCOUNTER 2020-10-18 16:22 | Observation (INO) ==
[2020-10-18] MEDS ORDERED: Azithromycin 500 MG in 0.9 % Sodium Chloride 250 ML IVPB ONE (16:47)
[2020-10-18] MEDS ORDERED: 0.9 % Sodium Chloride 1,000 ML IVC ONE ×3 (16:47→19:34)
[2020-10-18] MEDS ORDERED: cefTRIAXone 1,000 MG in Water for inj. (sterile) 10 ML IVP ONE (16:47)
[2020-10-18] MEDS ORDERED: *HR* HYDROmorphone (PF) 1 MG/ML SYRINGE IVP ONE (16:57)
[2020-10-18] MEDS ORDERED: methylPREDNISolone 125 MG/2 ML VIAL IVP ONE (16:57)
[2020-10-18] MEDS ORDERED: Ipratropium/Albuterol Neb 3 ML IH ONE (16:57)
[2020-10-18 17:02] LABS: Basophils % 0.4 %; Eosinophils # 0.2 K/mcL (0.0-0.6); Eosinophils % 2.2 %; Hematocrit 42.8 % (35.3-44.9); Hemoglobin 13.2 g/dL (11.5-15.4); Immature Granulocytes % 0.1 % (0-4); Lymphocytes % 14.9 %; Mean Corpuscular HGB Conc 30.8 g/dL (31.6-35.5); Mean Corpuscular Hemoglobin 27.2 pg (28.0-33.3); Mean Corpuscular Volume 88.1 fL (83.0-100.0); Mean Platelet Volume 10.1 fL (9.4-12.4); Monocytes # 0.8 K/mcL (0.0-1.3); Monocytes % 11.6 %; Neutrophils # 4.9 K/mcL (1.6-8.9); Platelet Count 200 K/mcL (140-400); Red Blood Count 4.86 M/mcL (3.82-4.97); Red Cell Distribution Width 13.8 % (11.5-14.5); Segmented Neutrophils % 70.8 %; White Blood Count 6.9 K/mcL (4.3-11.1)
[2020-10-18] MEDS ORDERED: Isovue-370 500 ML BOTTLE IVP ONE (17:21)
[2020-10-18 17:25] LABS: BUN/Creatinine Ratio 13 (6-26); Blood Urea Nitrogen 11 mg/dL (8-23); Calcium 9.4 mg/dL (8.6-10.3); Carbon Dioxide 23 mEq/L (23-29); Chloride 103 mEq/L (98-107); Glucose 110 mg/dL (70-105); Osmolality,Calculated 292 (280-300); Potassium 3.2 mEq/L (3.5-5.1); Sodium 141 mEq/L (136-145); Troponin I < 0.03 ng/mL (< 0.04); eGFR For African Americans > 60 (> 60); eGFR For Non-African Americans > 60 (> 60)
[2020-10-18] MEDS ORDERED: Potassium Chloride 40 MEQ, Lidocaine 1% 2 ML in 0.9 % Sodium Chloride 500 ML IVPB ONE (18:57)
[2020-10-18] MEDS ORDERED: Albuterol 2.5 MG/3 ML NEBULIZER IH PRN (20:30)
[2020-10-18] MEDS ORDERED: Naloxone 0.4 MG/ML INJ IVP PRN (20:32)
[2020-10-18] MEDS ORDERED: Acetaminophen 325 MG TABLET PO PRN (20:32)
[2020-10-18] MEDS ORDERED: Ondansetron 4 MG/2 ML VIAL IVP PRN (20:32)
[2020-10-18 20:57] LABS: Adenovirus Not Detected (Not Detect); Bordetella Pertussis Not Detected (Not Detect); Chlamydophila pneumoniae Not Detected (Not Detect); Coronavirus 229E Not Detected (Not Detect); Coronavirus HKU1 Not Detected (Not Detect); Coronavirus NL63 Not Detected (Not Detect); Coronavirus OC43 Not Detected (Not Detect); Human Metapneumovirus Not Detected (Not Detect); Human Rhinovirus/Enterovirus Not Detected (Not Detect); Influenza A Subtype 2009 H1 Not Detected (Not Detect); Influenza B Not Detected (Not Detect); Mycoplasma pneumoniae Not Detected (Not Detect); Parainfluenza Virus 1 Not Detected (Not Detect); Parainfluenza Virus 2 Not Detected (Not Detect); Parainfluenza Virus 3 Not Detected (Not Detect); Parainfluenza Virus 4 Not Detected (Not Detect); Respiratory Syncytial Virus Not Detected (Not Detect); SARS-CoV-2 Not Detected (Not Detect)
[2020-10-18] MEDS ORDERED: Melatonin 3 MG TABLET PO SCH (21:00)
[2020-10-18] MEDS ORDERED: *HR* Metoprolol 5 MG/5 ML VIAL IVP PRN (21:33)
[2020-10-18] MEDS ORDERED: *HR* HYDROcodone/Acet 5/325 mg TABLET PO PRN (22:35)
[2020-10-18] MEDS: 0.9 % Sodium Chloride 1,000 ML IVC SCH (22:56)
[2020-10-18] MEDS: Albuterol 2.5 MG/3 ML NEBULIZER IH SCH (23:12)
[2020-10-18 23:22] LABS: Bilirubin,Urine Negative (Negative); Blood,Urine Trace (Negative); Clarity,Urine Clear (Clear); Color,Urine Colorless (Yellow); Glucose,Urine (UA) Normal (Normal); Ketones,Urine Negative (Negative); Leukocyte Esterase,Urine Negative (Negative); Mucus,Urine Few per lpf (None-Few); Nitrite,Urine Negative (Negative); Protein,Urine Negative (Neg-Trace); RBC,Urine 0-3 per hpf (0-3); Specific Gravity,Urine > 1.030 (1.010-1.025); Squamous Epithelial Cell,Urine Few per hpf (None-Few); Urobilinogen,Urine Normal (Normal); WBC,Urine 0-3 per hpf (0-3)
[2020-10-19 01:14] LABS: Basophils % 0.1 %; Hematocrit 39.1 % (35.3-44.9); Hemoglobin 12.1 g/dL (11.5-15.4); Immature Granulocytes % 0.4 % (0-4); Lymphocytes # 0.5 K/mcL (0.6-4.6); Lymphocytes % 5.3 %; Mean Corpuscular HGB Conc 30.9 g/dL (31.6-35.5); Mean Corpuscular Hemoglobin 27.7 pg (28.0-33.3); Mean Corpuscular Volume 89.5 fL (83.0-100.0); Mean Platelet Volume 10.3 fL (9.4-12.4); Monocytes # 0.1 K/mcL (0.0-1.3); Monocytes % 0.6 %; Neutrophils # 8.3 K/mcL (1.6-8.9); Platelet Count 184 K/mcL (140-400); Red Blood Count 4.37 M/mcL (3.82-4.97); Red Cell Distribution Width 13.8 % (11.5-14.5); Segmented Neutrophils % 93.6 %; White Blood Count 8.9 K/mcL (4.3-11.1)
[2020-10-19 01:35] LABS: Alanine Aminotransferase 13 Units/L (7-52); Albumin 3.7 g/dL (3.5-5.7); Albumin/Globulin Ratio 1.3 (1.1-2.2); Alkaline Phosphatase 81 Units/L (34-104); Aspartate Amino Transferase 17 Units/L (13-39); BUN/Creatinine Ratio 10 (6-26); Bilirubin,Total 0.3 mg/dL (0.3-1.0); Blood Urea Nitrogen 8 mg/dL (8-23); Calcium 8.3 mg/dL (8.6-10.3); Carbon Dioxide 21 mEq/L (23-29); Chloride 109 mEq/L (98-107); Globulin 2.9 g/dL (2.4-3.5); Glucose 183 mg/dL (70-105); Osmolality,Calculated 293 (280-300); Potassium 4.1 mEq/L (3.5-5.1); Sodium 140 mEq/L (136-145); Total Protein 6.6 g/dL (6.4-8.9); eGFR For African Americans > 60 (> 60); eGFR For Non-African Americans > 60 (> 60)
[2020-10-19] MEDS ORDERED: 0.9 % Sodium Chloride 1,000 ML IVC ONE (02:02)
[2020-10-19 02:23] LABS: Acetaminophen < 10 mcg/mL (10-20); Salicylate < 2.5 mg/dL (15.0-30.0)
[2020-10-19] MEDS: Albuterol 2.5 MG/3 ML NEBULIZER IH SCH ×2 (03:26→07:29)
[2020-10-19] MEDS ORDERED: *HR* HYDROmorphone (PF) 1 MG/ML SYRINGE IVP ONE (04:23)
[2020-10-19] MEDS ORDERED: *HR* Heparin 5,000 UNIT/ML VIAL SQ SCH (06:00)
[2020-10-19] MEDS ORDERED: predniSONE 20 MG TABLET PO SCH (09:00)
[2020-10-19] MEDS ORDERED: cefTRIAXone 1,000 MG in Water for inj. (sterile) 10 ML IVP SCH (09:00)
[2020-10-19] MEDS: 0.9 % Sodium Chloride 1,000 ML IVC SCH (09:32)
[2020-10-19 11:44] VITALS: BP 157/82
[2020-10-19] MEDS ORDERED: *HR* OxyCODONE/APAP 10/325 TABLET PO PRN (12:56)
[2020-10-19] MEDS ORDERED: polyethylene glycoL 3350 17 GM POWD.PACK PO PRN (13:26)
[2020-10-19] MEDS ORDERED: *HR* OxyCODONE Immed Rel 15 MG TABLET PO PRN (13:26)
[2020-10-19] MEDS ORDERED: ALPRAZolam 1 MG TABLET PO PRN (13:26)
[2020-10-19] MEDS ORDERED: Perphenazine 2 MG TABLET PO SCH (13:30)
[2020-10-19] MEDS ORDERED: Azithromycin 500 MG in 0.9 % Sodium Chloride 250 ML IVPB SCH (17:00)
[2020-10-19] MEDS ORDERED: QUEtiapine Fumarate 25 MG TABLET PO SCH (21:00)
[2020-10-20] MEDS ORDERED: Aspirin 325 MG TABLET PO SCH (09:00)
== END 2020-10-19 16:05 | disposition home or self-care (01) ==
LOC: 2ANU 16:22 → EMEROOARM 16:22 → SUATTDRO 20:25 → 2ANU 22:19
PROVIDERS: ADMIT Family Medicine; ATTEND Internal Medicine